=== PATIENT | female | born 1960 ===

== ENCOUNTER 2024-06-22 09:09 | Day surgery (SDC) | payer OTHER ==
[~2024-06-22] VITALS: Ht 177.8 cm; Wt 87.5 kg
[~2024-06-22 09:09] MED LIST: Lactated Ringer's 1,000 ML IV ONE
[2024-06-22] MEDS ORDERED: CeFAZolin Sodium 2,000 MG VIAL ONE (09:28)
[2024-06-22] MEDS ORDERED: FentaNYL Citrate 50 MCG/ML 2 ML Injection ONE (10:06)
[2024-06-22] MEDS ORDERED: propofoL 20 ML IV ONE (10:06)
[2024-06-22] MEDS ORDERED: Dexamethasone Sod Phos 10 MG/ML 1ML VIAL ONE (10:07)
[2024-06-22] MEDS ORDERED: Ondansetron HCl 2 MG / ML 2ML Vial ONE (10:07)
[2024-06-22] MEDS ORDERED: Lactated Ringer's 1,000 ML IV ONE (10:07)
[2024-06-22] MEDS ORDERED: Ketorolac Tromethamine 30mg Vial ONE (10:07)
[2024-06-22] MEDS ORDERED: Prinivil10 MG PO (10:09)
[2024-06-22] MEDS ORDERED: CYCL10 PO (10:10)
[2024-06-22] MEDS ORDERED: HYDCHL50 PO (10:11)
[2024-06-22] MEDS ORDERED: KRILL OIL500 MG PO (10:13)
[2024-06-22] MEDS ORDERED: MERIBIN5 MG PO (10:13)
[2024-06-22] MEDS ORDERED: CALCIUM MAGNES1 EAC1 PO (10:14)
[2024-06-22] MEDS ORDERED: ZINC15 PO (10:14)
[2024-06-22] MEDS ORDERED: TURMERIC500 M2 PO (10:15)
[2024-06-22] MEDS ORDERED: Vitamin B Comple1 EA PO (10:15)
[2024-06-22] MEDS ORDERED: ASCORBIC ACID500 MG PO (10:16)
[2024-06-22] MEDS ORDERED: Nicoderm Cq1 EAC1 TOP (10:16)
[2024-06-22] MEDS ORDERED: Ropivacaine 0.5% HCL/PF 5 MG/ML 30ML Vial ONE (10:59)
[2024-06-22] MEDS ORDERED: EPINEPhrine HCl 1 MG/ML 1ML Amp ONE (10:59)
[2024-06-22] MEDS ORDERED: Midazolam HCl 1MG / ML 2ML Vial ONE (11:08)
--- NOTE | 2024-06-22 12:03 | NUR ---
06/22/24 1203 Toshia Ca PT STRAIGHT CATH WITH PREP 100ML URINE OUTPUT
== END 2024-06-22 12:55 | disposition home or self-care (01) ==
LOC: ORSCSDS 09:09
PROVIDERS: Obstetrics & Gynecology
PROC: 0UBC7ZX Excision of Cervix, Via Natural or Artificial Opening, Diagnostic (ICD-10-PCS; principal; 2024-06-22 10:30)
DX: D06.0 Carcinoma in situ of endocervix (principal); I10 Essential (primary) hypertension; Z87.891 Personal history of nicotine dependence; Z86.19 Personal history of other infectious and parasitic diseases; Z79.899 Other long term (current) drug therapy; Z85.828 Personal history of other malignant neoplasm of skin
CPT/HCPCS: 88305; J0171; J0690; J1100; J1885; J2250; J2405; J2704; J2795; J3010; J7120